=== PATIENT | female | born 1985 | race Caucasian/White ===

== ENCOUNTER → 2019-04-18 | Outpatient (CLI) | payer OTHER | END | disposition home or self-care (01) | LOC: RAD 13:36 | PROVIDERS: ATTEND Nurse Practitioner Family | DX: C11.9 Malignant neoplasm of nasopharynx, unspecified (principal); J69.0 Pneumonitis due to inhalation of food and vomit | CPT/HCPCS: 74220 ==

== ENCOUNTER → 2019-05-16 | Outpatient (CLI) | payer OTHER | END | disposition home or self-care (01) | LOC: CFH 12:56 | PROVIDERS: ATTEND Internal Medicine Critical Care Medicine | DX: J32.3 Chronic sphenoidal sinusitis (principal); J32.0 Chronic maxillary sinusitis; R91.8 Other nonspecific abnormal finding of lung field | CPT/HCPCS: 70486; 70490; 71250 ==

== ENCOUNTER 2019-06-12 09:48 | Outpatient (CLI) | payer OTHER | END 2019-06-12 23:59 | disposition home or self-care (01) | LOC: RAD 09:48 | PROVIDERS: ATTEND Nurse Practitioner Family | DX: C11.9 Malignant neoplasm of nasopharynx, unspecified (principal); R13.14 Dysphagia, pharyngoesophageal phase; K22.2 Esophageal obstruction; J32.9 Chronic sinusitis, unspecified; J69.0 Pneumonitis due to inhalation of food and vomit | CPT/HCPCS: 74230 ==

== ENCOUNTER 2019-10-04 19:43 | Emergency (ER) | payer OTHER ==
[~2019-10-04] VITALS: Ht 165.1 cm; Wt 51.7 kg
[2019-10-04 19:55] VITALS: BP 108/72
[2019-10-04] MEDS ORDERED: OSELTAMIVIR 75 MG CAPSULE ONE (20:12)
[2019-10-04] MEDS ORDERED: OSELTAMIVIR 75 MG CAPSULE PO ONE (20:30)
== END 2019-10-04 20:42 | disposition home or self-care (01) ==
LOC: ED 20:15
DX: J10.1 Influenza due to other identified influenza virus with other respiratory manifestations (principal); J45.909 Unspecified asthma, uncomplicated
CPT/HCPCS: 99283

== ENCOUNTER 2019-10-07 08:43 | Inpatient (IN) | payer OTHER ==
[~2019-10-07] VITALS: Ht 165.1 cm; Wt 61.8 kg
--- NOTE | 2019-10-07 09:27 | NUR ---
PT RESTING IN BED, ERP AT BEDSIDE TO ASSESS. STATES SHE IS POSITIVE FOR THE FLU AND CURRENTLY ON TAMIFLU. MASK IN PLACE. PT RIGHT EAR RED, SWOLLEN, AND DRAINING, LINE OF REDNESS NOTED ON SIDE OF FACE. PT STATES THAT HER LYMPHNODES ARE SWOLLEN WELL. PT TACHY, WITH A LOW BP. IV STARTED, LABS AND ONE SET OF CULTURES DRAWN. IV FLUIDS INFUSING. PT ENCOURAGED TO DRINK PO FLUIDS, WATER JUICE AND SPRITE PROVIDED AT BEDSIDE. WARM BLANKETS. PT DENIES ANY FURTHER NEEDS AT THIS TIME. LAB AT BEDSIDE FOR SECOND SET AT THIS TIME. CALL LIGHT IN REACH.
[2019-10-07] MEDS ORDERED: SODIUM CHLORIDE 0.9% 1,000ML IVBOLUS ONE (09:30)
[2019-10-07] MEDS ORDERED: PIPERACILLIN/TAZO/PMX 3.375GM 50 ML IVPB ONE (09:30)
[2019-10-07] MEDS ORDERED: VANCOMYCIN PER PHARMACY MC ONE (09:30)
[2019-10-07] MEDS ORDERED: SODIUM CHLORIDE FLUSH 10ML SYR IVF ONE (09:30)
[2019-10-07] MEDS ORDERED: VANCOMYCIN PMX 1GM/200ML 200 ML IVPB ONE (09:30)
[2019-10-07 09:46] LABS: MEAN CORPUSCULAR HEMOGLOBIN 28.4 pg (27.0-34.8); MEAN CORPUSCULAR HGB CONC 32.6 g/dL (32.4-35.8); MEAN CORPUSCULAR VOLUME 87.1 fL (80-100); MEAN PLATELET VOLUME 7.8 fL (7.4-10.4); PLATELET COUNT 187 x10^3/uL (130-400); RED BLOOD COUNT 4.36 x10^6/uL (3.82-5.3); RED CELL DISTRIBUTION WIDTH 16.2 % (9.6-15.2)
[2019-10-07 09:58] LABS: ALANINE AMINOTRANSFERASE 406 U/L (12-78); ANION GAP 6 mmol/L (5-15); CALCIUM 8.5 mg/dL (8.5-10.1); CHLORIDE 103 mmol/L (98-107); CREATININE 1.19 mg/dL (0.55-1.02)
[2019-10-07 10:01] LABS: ALKALINE PHOSPHATASE 174 U/L (45-117); BILIRUBIN,TOTAL 0.8 mg/dL (0.2-1.0)
[2019-10-07] MEDS ORDERED: PIPERACILLIN/TAZO/PMX 3.375GM 50 ML ONE (10:04)
[2019-10-07] MEDS ORDERED: ACETAMINOPHEN 500 MG TABLET ONE (10:09)
[2019-10-07 10:14] LABS: MD YES
[2019-10-07 10:17] LABS: <PLATELET ESTIMATE> ADEQUATE; <PLT MORPHOLOGY> NORMAL PLT MORPH; ANISOCYTOSIS 1+; BAND#(MANUAL) 3.93 x10^3/uL; BANDS%(MANUAL) 51 % (0-7); LYMPH#(MANUAL) 0.08 x10^3/uL (1-3.4); LYMPHS% (MANUAL) 1 % (22-44); METAMYELOCYTES# (MANUAL) 0.85 x10^3/uL (0-0); METAMYELOCYTES% (MANUAL) 11 % (0-1); SEG#(MANUAL) 2.85 x10^3/uL (1.8-6.8); SEGS% (MANUAL) 37 % (42-75)
[2019-10-07 10:18] LABS: PMNS WITH VACUOLES 1+
[2019-10-07] MEDS ORDERED: CHARCOAL/SORBITOL 50 GM/240 ML ONE (10:19)
[2019-10-07] MEDS ORDERED: CHARCOAL/AQUEOUS 25 GM/120 ML PO ONE (10:30)
[2019-10-07] MEDS ORDERED: IBUPROFEN 200 MG TABLET PO ONE (10:30)
[2019-10-07 10:51] LABS: INTERNATIONAL NORMALIZED RATIO 1.02 (0.93-1.1); PROTHROMBIN TIME 10.7 Seconds (9.6-11.5)
[2019-10-07] MEDS ORDERED: VANCOMYCIN PER PHARMACY MC PRN (11:30)
[2019-10-07] MEDS ORDERED: morphine SULFATE 10 MG/ML, 1ML IVPush PRN (11:30)
[2019-10-07] MEDS ORDERED: ENOXAPARIN 40 MG/0.4 ML SQ SCH (11:30)
[2019-10-07] MEDS ORDERED: IBUPROFEN 600 MG TABLET PO PRN (11:30)
[2019-10-07] MEDS ORDERED: BISACODYL 10 MG SUPP PR PRN (11:30)
[2019-10-07] MEDS ORDERED: POLYETHYLENE GLYCOL 17 GM PACKET PO PRN (11:30)
[2019-10-07] MEDS ORDERED: DOCUSATE 100 MG CAPSULE PO PRN (11:30)
--- NOTE | 2019-10-07 11:35 | NUR ---
REPORT CALLED TO NAYELY, RECEIVING RN. PT CONTINUES IN CT AT THIS TIME.
--- NOTE | 2019-10-07 11:50 | NUR ---
REPORT CALLED TO DENAE LOPEZ.
--- NOTE | 2019-10-07 11:52 | NUR ---
PT RETURNED FROM CT, UP TO RESTROOM FOR URINE SAMPLE COLLECTION AT THIS TIME.
--- NOTE | 2019-10-07 12:02 | NUR ---
ENT FOR EXAM AT BEDSIDE. URINE COLLECTED AND SENT. NEW VITALS IN. PT DENIES ANY NEEDS OR CONCERNS AT THIS TIME, IV FLUIDS CONTINUE TO INFUSE AT THIS TIME.
[2019-10-07 12:29] VITALS: BP 115/62
[2019-10-07] MEDS ORDERED: PHARMACOKINETIC CONSULTATION MC ONE (12:30)
[2019-10-07] MEDS ORDERED: PHARMACOKINETIC MONITORING MC PRN (12:30)
[2019-10-07] MEDS: VANCOMYCIN PMX 1GM/200ML 200 ML IVPB SCH (13:06)
[2019-10-07] MEDS: SODIUM CHLORIDE 0.9% 1,000 ML IV SCH ×3 (13:06→22:10)
[2019-10-07] MEDS ORDERED: PIPERACILLIN/TAZO/PMX 3.375GM 50 ML IV SCH (17:00)
[2019-10-07] MEDS ORDERED: FLUT100B INH (17:16)
[2019-10-07] MEDS ORDERED: OSEL75CA26 PO (17:16)
[2019-10-07] MEDS ORDERED: SODIUM CHLORIDE INHALATION 7%, 4 ML ONE (19:46)
[2019-10-07 20:33] VITALS: BP 83/49
[2019-10-07 22:15] LABS: MICROSCOPIC AUTO
[2019-10-07 22:16] LABS: CULTURE INDICATED? NO
[2019-10-07 22:51] VITALS: BP 90/55
[2019-10-08] MEDS: PIPERACILLIN/TAZO/PMX 3.375GM 50 ML IV SCH ×4 (00:33→18:17)
[2019-10-08 00:36] VITALS: BP 89/56
[2019-10-08] MEDS: VANCOMYCIN PMX 1GM/200ML 200 ML IVPB SCH ×2 (01:20→14:32)
[2019-10-08 05:39] LABS: ALANINE AMINOTRANSFERASE 393 U/L (12-78); ALBUMIN 1.9 g/dL (3.4-5.0); ANION GAP 4 mmol/L (5-15); CALCIUM 7.5 mg/dL (8.5-10.1); CHLORIDE 115 mmol/L (98-107); CHOLESTEROL, TOTAL 102 mg/dL (140-239); CREATININE 1.08 mg/dL (0.55-1.02)
[2019-10-08 05:42] LABS: MEAN CORPUSCULAR HEMOGLOBIN 29.3 pg (27.0-34.8); MEAN CORPUSCULAR VOLUME 88.8 fL (80-100); MEAN PLATELET VOLUME 8.2 fL (7.4-10.4); PLATELET COUNT 150 x10^3/uL (130-400); RED BLOOD COUNT 3.74 x10^6/uL (3.82-5.3); RED CELL DISTRIBUTION WIDTH 15.9 % (9.6-15.2)
[2019-10-08 05:48] LABS: ALKALINE PHOSPHATASE 279 U/L (45-117); BILIRUBIN,TOTAL 1.4 mg/dL (0.2-1.0); CHOL/HDL RATIO 8.5; HDL CHOL % 12 % (28-40); HDL CHOLESTEROL (DIRECT) 12 mg/dL (40-60); LDL CHOLESTEROL,CALCULATED 27 mg/dL (54-169); LDL/HDL RATIO 2.3 (0.5-3.0); TOTAL PROTEIN 5.2 g/dL (6.4-8.2); TRIGLYCERIDES 314 mg/dL (50-200); VLDL CHOLESTEROL 63 mg/dL (0-25)
[2019-10-08 06:20] LABS: MD YES
[2019-10-08 06:22] LABS: BAND#(MANUAL) 2.64 x10^3/uL; BANDS%(MANUAL) 66 % (0-7); LYMPH#(MANUAL) 0.24 x10^3/uL (1-3.4); LYMPHS% (MANUAL) 6 % (22-44); MONOS#(MANUAL) 0.08 x10^3/uL (0.3-2.7); MONOS% (MANUAL) 2 % (2-9); SEG#(MANUAL) 1.04 x10^3/uL (1.8-6.8); SEGS% (MANUAL) 26 % (42-75)
[2019-10-08 06:25] LABS: <PLATELET ESTIMATE> ADEQUATE; <PLT MORPHOLOGY> NORMAL PLT MORPH; ANISOCYTOSIS 1+
[2019-10-08 08:35] VITALS: BP 82/46
[2019-10-08] MEDS ORDERED: SODIUM CHLORIDE 0.9% 1,000 ML IV SCH (09:00)
[2019-10-08] MEDS: DOXYCYCLINE 100 MG in DEXTROSE 5% 250 ML IV SCH ×2 (09:48→21:42)
[2019-10-08] MEDS: ENOXAPARIN 40 MG/0.4 ML SQ SCH (11:38)
[2019-10-08] MEDS: OSELTAMIVIR 75 MG CAPSULE PO SCH ×2 (11:39→22:04)
[2019-10-08 11:40] VITALS: BP 87/55
[2019-10-08 15:58] VITALS: BP 100/67
[2019-10-08] MEDS: NEUTRA PHOS K 250 MG TABLET PO SCH ×2 (16:09→22:04)
[2019-10-08] MEDS: SODIUM CHLORIDE 0.9% 1,000 ML IV SCH (18:10)
[2019-10-08 20:40] VITALS: BP 116/80
[2019-10-08] MEDS: ONDANSETRON 2MG/ML, 2ML IVPush PRN (21:30)
[2019-10-08] MEDS ORDERED: IBUPROFEN 200 MG TABLET PO PRN (23:00)
[2019-10-08] MEDS: OXYcodone IR 5MG TABLET PO PRN (23:14)
[2019-10-09 00:11] VITALS: BP 95/59
[2019-10-09] MEDS: PIPERACILLIN/TAZO/PMX 3.375GM 50 ML IV SCH ×4 (01:02→19:20)
[2019-10-09] MEDS: VANCOMYCIN PMX 1GM/200ML 200 ML IVPB SCH ×2 (02:37→14:36)
[2019-10-09] MEDS: SODIUM CHLORIDE 0.9% 1,000 ML IV SCH ×2 (03:38→12:44)
[2019-10-09 06:02] LABS: BASOPHILS % (AUTO) 0 % (0-1); EOSINOPHILS # (AUTO) 0.02 x10^3/uL (0-0.4); EOSINOPHILS % (AUTO) 0 % (1-7); LYMPHOCYTES # (AUTO) 0.55 x10^3/uL (1-3.4); LYMPHOCYTES % (AUTO) 11 % (22-44); MD NO; MEAN CORPUSCULAR HEMOGLOBIN 28.7 pg (27.0-34.8); MEAN CORPUSCULAR HGB CONC 33.1 g/dL (32.4-35.8); MEAN CORPUSCULAR VOLUME 86.7 fL (80-100); MEAN PLATELET VOLUME 8.1 fL (7.4-10.4); MONOCYTES # (AUTO) 0.56 x10^3/uL (0.2-0.8); MONOCYTES % (AUTO) 11 % (2-9); NEUTROPHILS # (AUTO) 4.11 x10^3/uL (1.8-6.8); NEUTROPHILS % (AUTO) 78 % (42-75); PLATELET COUNT 148 x10^3/uL (130-400); RED BLOOD COUNT 3.75 x10^6/uL (3.82-5.3); RED CELL DISTRIBUTION WIDTH 16.3 % (9.6-15.2)
[2019-10-09 06:09] LABS: ALANINE AMINOTRANSFERASE 292 U/L (12-78); ALBUMIN 1.9 g/dL (3.4-5.0); ANION GAP 4 mmol/L (5-15); CALCIUM 7.5 mg/dL (8.5-10.1); CHLORIDE 113 mmol/L (98-107); CREATININE 0.83 mg/dL (0.55-1.02)
[2019-10-09 06:12] LABS: ALKALINE PHOSPHATASE 467 U/L (45-117); BILIRUBIN,TOTAL 1.1 mg/dL (0.2-1.0); TOTAL PROTEIN 5.3 g/dL (6.4-8.2)
[2019-10-09 07:58] VITALS: BP 90/55
[2019-10-09] MEDS ORDERED: POTASSIUM CHLORIDE 20 MEQ TAB.ER.PRT PO SCH (08:00)
[2019-10-09] MEDS ORDERED: SODIUM CHLORIDE 0.9% 1,000 ML IV SCH (09:00)
[2019-10-09] MEDS: NEUTRA PHOS K 250 MG TABLET PO SCH ×3 (09:28→22:14)
[2019-10-09] MEDS: OSELTAMIVIR 75 MG CAPSULE PO SCH ×2 (09:28→22:14)
[2019-10-09] MEDS: DOXYCYCLINE 100 MG in DEXTROSE 5% 250 ML IV SCH (09:29)
[2019-10-09] MEDS: ARNUITY ELLIPTA 100 MCG INH SCH (09:29)
[2019-10-09] MEDS: POTASSIUM CHLORIDE 20 MEQ TAB.ER.PRT PO SCH ×3 (09:29→22:15)
[2019-10-09] MEDS: ENOXAPARIN 40 MG/0.4 ML SQ SCH (12:44)
[2019-10-09] MEDS ORDERED: OMNIPAQUE 350 MG/ML, 100ML BOTTLE ONE (12:48)
[2019-10-09 14:55] VITALS: BP 94/60
[2019-10-09] MEDS ORDERED: IBUPROFEN 200 MG TABLET ONE (17:34)
[2019-10-09] MEDS: IBUPROFEN 200 MG TABLET PO PRN (17:36)
[2019-10-09 18:55] VITALS: BP 93/55
[2019-10-09] MEDS: ONDANSETRON 2MG/ML, 2ML IVPush PRN (21:54)
[2019-10-09] MEDS: OXYcodone IR 5MG TABLET PO PRN (22:15)
[2019-10-09] MEDS: NYSTATIN 500,000 UNITS/5 ML UDC PO SCH (22:15)
[2019-10-10] MEDS: PIPERACILLIN/TAZO/PMX 3.375GM 50 ML IV SCH ×2 (00:54→06:24)
[2019-10-10 00:59] VITALS: BP 99/61
[2019-10-10] MEDS: SODIUM CHLORIDE 0.9% 1,000 ML IV SCH ×2 (02:00→12:12)
[2019-10-10] MEDS: IBUPROFEN 200 MG TABLET PO PRN ×2 (04:55→22:37)
[2019-10-10 05:33] LABS: MEAN CORPUSCULAR HEMOGLOBIN 28.5 pg (27.0-34.8); MEAN CORPUSCULAR HGB CONC 32.8 g/dL (32.4-35.8); MEAN CORPUSCULAR VOLUME 86.9 fL (80-100); MEAN PLATELET VOLUME 8.8 fL (7.4-10.4); PLATELET COUNT 166 x10^3/uL (130-400); RED BLOOD COUNT 3.93 x10^6/uL (3.82-5.3); RED CELL DISTRIBUTION WIDTH 16.5 % (9.6-15.2)
[2019-10-10 05:34] LABS: ALANINE AMINOTRANSFERASE 250 U/L (12-78); ALBUMIN 2.1 g/dL (3.4-5.0); ANION GAP 6 mmol/L (5-15); CHLORIDE 112 mmol/L (98-107)
[2019-10-10 05:38] LABS: ALKALINE PHOSPHATASE 534 U/L (45-117); BILIRUBIN,TOTAL 0.5 mg/dL (0.2-1.0); CALCIUM 7.9 mg/dL (8.5-10.1); CREATININE 0.74 mg/dL (0.55-1.02); TOTAL PROTEIN 5.8 g/dL (6.4-8.2)
[2019-10-10 06:13] LABS: BASOPHILS # (AUTO) 0.01 x10^3/uL (0-0.1); BASOPHILS % (AUTO) 0 % (0-1); EOSINOPHILS % (AUTO) 2 % (1-7); LYMPHOCYTES # (AUTO) 1.24 x10^3/uL (1-3.4); LYMPHOCYTES % (AUTO) 22 % (22-44); MD SCAN; MONOCYTES # (AUTO) 0.24 x10^3/uL (0.2-0.8); MONOCYTES % (AUTO) 4 % (2-9); NEUTROPHILS # (AUTO) 3.97 x10^3/uL (1.8-6.8); NEUTROPHILS % (AUTO) 71 % (42-75)
[2019-10-10] MEDS: NYSTATIN 500,000 UNITS/5 ML UDC PO SCH ×4 (06:23→22:37)
[2019-10-10] MEDS: MAGNESIUM OXIDE 400 MG TABLET PO SCH ×2 (09:05→22:37)
[2019-10-10] MEDS: POTASSIUM CHLORIDE 20 MEQ TAB.ER.PRT PO SCH ×2 (09:05→22:37)
[2019-10-10] MEDS: NEUTRA PHOS K 250 MG TABLET PO SCH ×3 (09:05→22:37)
[2019-10-10] MEDS: ARNUITY ELLIPTA 100 MCG INH SCH (09:09)
[2019-10-10 09:10] VITALS: BP 100/71
[2019-10-10] MEDS: OSELTAMIVIR 75 MG CAPSULE PO SCH ×3 (09:10→22:36)
[2019-10-10] MEDS ORDERED: CEFTRIAXONE PMX 2GM/50ML 50 ML IV SCH (11:00)
[2019-10-10] MEDS ORDERED: FLUCONAZOLE 50 MG TABLET PO ONE (11:00)
[2019-10-10] MEDS: ENOXAPARIN 40 MG/0.4 ML SQ SCH (12:12)
[2019-10-10 14:14] VITALS: BP 109/73
[2019-10-10 16:30] LABS: ANA SCREEN NEGATIVE (Negative)
[2019-10-10 20:06] VITALS: BP 116/81
[2019-10-11 03:11] VITALS: BP 110/71
[2019-10-11] MEDS: SODIUM CHLORIDE 0.9% 1,000 ML IV SCH ×2 (03:21→14:30)
[2019-10-11 05:33] LABS: MEAN CORPUSCULAR HEMOGLOBIN 28.5 pg (27.0-34.8); MEAN CORPUSCULAR HGB CONC 32.9 g/dL (32.4-35.8); MEAN CORPUSCULAR VOLUME 86.5 fL (80-100); MEAN PLATELET VOLUME 8.2 fL (7.4-10.4); PLATELET COUNT 175 x10^3/uL (130-400); RED BLOOD COUNT 3.57 x10^6/uL (3.82-5.3); RED CELL DISTRIBUTION WIDTH 16.6 % (9.6-15.2)
[2019-10-11 05:44] LABS: ALANINE AMINOTRANSFERASE 187 U/L (12-78); ANION GAP 5 mmol/L (5-15); CHLORIDE 113 mmol/L (98-107); CREATININE 0.57 mg/dL (0.55-1.02)
[2019-10-11 05:46] LABS: ALKALINE PHOSPHATASE 477 U/L (45-117); BILIRUBIN,TOTAL 0.3 mg/dL (0.2-1.0); CALCIUM 7.5 mg/dL (8.5-10.1); TOTAL PROTEIN 5.5 g/dL (6.4-8.2)
[2019-10-11 05:55] LABS: MD YES
[2019-10-11 05:58] LABS: <PLATELET ESTIMATE> ADEQUATE; <PLT MORPHOLOGY> NORMAL PLT MORPH; ANISOCYTOSIS 1+; BAND#(MANUAL) 0.19 x10^3/uL; BANDS%(MANUAL) 3 % (0-7); EOS#(MANUAL) 0.13 x10^3/uL (0.0-0.4); EOS% (MANUAL) 2 % (1-7); LYMPH#(MANUAL) 2.71 x10^3/uL (1-3.4); LYMPHS% (MANUAL) 43 % (22-44); METAMYELOCYTES# (MANUAL) 0.19 x10^3/uL (0-0); METAMYELOCYTES% (MANUAL) 3 % (0-1); MONOS#(MANUAL) 0.38 x10^3/uL (0.3-2.7); MONOS% (MANUAL) 6 % (2-9); SEG#(MANUAL) 2.71 x10^3/uL (1.8-6.8); SEGS% (MANUAL) 43 % (42-75)
[2019-10-11 06:22] VITALS: BP 109/66
[2019-10-11] MEDS: NYSTATIN 500,000 UNITS/5 ML UDC PO SCH ×2 (06:25→12:27)
[2019-10-11] MEDS: ARNUITY ELLIPTA 100 MCG INH SCH (09:00)
[2019-10-11] MEDS: POTASSIUM CHLORIDE 20 MEQ TAB.ER.PRT PO SCH (09:53)
[2019-10-11] MEDS: OSELTAMIVIR 75 MG CAPSULE PO SCH (09:53)
[2019-10-11] MEDS: MAGNESIUM OXIDE 400 MG TABLET PO SCH (09:53)
[2019-10-11] MEDS: NEUTRA PHOS K 250 MG TABLET PO SCH (09:53)
[2019-10-11] MEDS: ENOXAPARIN 40 MG/0.4 ML SQ SCH ×2 (13:00→14:51)
[2019-10-11] MEDS ORDERED: CEFTRIAXONE PMX 2GM/50ML 50 ML IV SCH (13:30)
[2019-10-11 13:42] VITALS: BP 121/74
[2019-10-11] MEDS ORDERED: MAGN400T50 PO (14:26)
[2019-10-11] MEDS ORDERED: NYST1000 PO (14:26)
[2019-10-18] MEDS ORDERED: APIX5TAB PO (16:08)
== END 2019-10-11 16:11 | disposition home or self-care (01) | DRG 871 ==
LOC: ED 09:17 → EDIP 10:29 → 4WST 12:19
PROVIDERS: ADMIT Internal Medicine; ATTEND Internal Medicine
PROC: 02HV33Z Insertion of Infusion Device into Superior Vena Cava, Percutaneous Approach (ICD-10-PCS; principal; 2019-10-11)
PROC: B548ZZA Ultrasonography of Superior Vena Cava, Guidance (ICD-10-PCS; 2019-10-11)
PROC: B5181ZA Fluoroscopy of Superior Vena Cava using Low Osmolar Contrast, Guidance (ICD-10-PCS; 2019-10-11)
DX: A40.0 Sepsis due to streptococcus, group A (principal); K72.00 Acute and subacute hepatic failure without coma; J11.00 Influenza due to unidentified influenza virus with unspecified type of pneumonia; B37.0 Candidal stomatitis; E87.1 Hypo-osmolality and hyponatremia; L03.211 Cellulitis of face; D83.9 Common variable immunodeficiency, unspecified; N17.9 Acute kidney failure, unspecified; I82.612 Acute embolism and thrombosis of superficial veins of left upper extremity; B37.3 Candidiasis of vulva and vagina; E83.39 Other disorders of phosphorus metabolism; E87.6 Hypokalemia; H60.10 Cellulitis of external ear, unspecified ear; R65.20 Severe sepsis without septic shock; K80.20 Calculus of gallbladder without cholecystitis without obstruction; J45.909 Unspecified asthma, uncomplicated; H70.12 Chronic mastoiditis, left ear; H61.001 Unspecified perichondritis of right external ear; H66.001 Acute suppurative otitis media without spontaneous rupture of ear drum, right ear; H60.501 Unspecified acute noninfective otitis externa, right ear; H60.11 Cellulitis of right external ear; Z85.818 Personal history of malignant neoplasm of other sites of lip, oral cavity, and pharynx; Z92.3 Personal history of irradiation; Z92.21 Personal history of antineoplastic chemotherapy; Z86.14 Personal history of Methicillin resistant Staphylococcus aureus infection; Z80.42 Family history of malignant neoplasm of prostate; Z80.0 Family history of malignant neoplasm of digestive organs; Z80.3 Family history of malignant neoplasm of breast; C11.9 Malignant neoplasm of nasopharynx, unspecified; R73.9 Hyperglycemia, unspecified; H61.011 Acute perichondritis of right external ear
CPT/HCPCS: 36415; 36573; 70480; 70491; 71045; 76700; 80053; 80061; 80074; 80202; 80307; 81001; 82533; 83605; 83735; 84100; 84145; 84443; 84702; 85025; 85610; 86038; 87040; 87070; 87147; 87181; 87205; 93005; 94640; 96365; G0378; J0696; J1650; J2405; J2543; J3370; J7060; Q9967; C1751; J7030

== ENCOUNTER 2019-10-17 15:38 | Outpatient (CLI) | payer OTHER ==
[~2019-10-17 15:38] MED LIST: FLUT100B INH; MAGN400T50 PO; NYST1000 PO; OSEL75CA26 PO
[2019-10-18] MEDS ORDERED: APIX5TAB PO (16:08)
== END 2019-10-17 23:59 | disposition home or self-care (01) ==
LOC: CFH 15:38
PROVIDERS: ATTEND Internal Medicine Infectious Disease
DX: I82.B12 Acute embolism and thrombosis of left subclavian vein (principal)
CPT/HCPCS: 76536